=== PATIENT | female | born 1970 | race Caucasian/White ===

== ENCOUNTER 2024-09-15 22:06 | Emergency (ER) | payer OTHER, SELFPAY ==
--- NOTE | ~2024-09-15 | XR_ITS ---
CLINICAL HISTORY: pain 4 view right elbow Comparison: None Findings: Mild osteoarthritis. No displaced fracture. No dislocation. No radiopaque foreign body. IMPRESSION: 1. No acute fracture or dislocation. 2. Mild osteoarthritis. This document has been electronically signed by: Tristen Faustin MD on 09/16/2024 01:11:50
[2024-09-15 23:19] VITALS: BP 125/71; PULSE 60; RESP 18; TEMP 36.8; O2SAT 99; BMI 27.6
--- NOTE | 2024-09-16 00:50 | ED_ITS ---
HPI - Extremity Problem General Chief complaint: Extremity Problem Stated complaint: elbow hurts/ cant it move w/o pain traveling Time Seen by Provider: 09/16/24 00:46 Source: patient Mode of arrival: ambulatory Limitations: no limitations History of Present Illness ED Provider: Dr. Russ Palomino HPI Narrative: 54-year-old female who presents emergency department for evaluation of right elbow pain. The patient points to in area around her right elbow when she was asked localize the pain. She was describes the pain is feeling as if she was a pinched nerve. she states the pain started 2 weeks prior and it was initially mild but he was now become severe in his 04/18. The patient states the pain is not worse with movement of her elbow or arm but is severely painful if she t ouches the skin in the affected area. She was not noticed any breakdown of her skin, redness or lesions. She states she was took Tylenol and ibuprofen with no relief of her symptoms. She denies any injury. 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 She denied numbness or weakness of her right arm. Related Data Previous Rx's ?Medication ?Instructions ?Recorded gabapentin 300 mg capsule 300 mg PO BID 2 weeks #28 caps 09/16/24 oxycodone 5 mg tablet 5 mg PO Q6H PRN pain #1 tab 09/16/24 Allergies Allergy/AdvReac Type Severity Reaction Status Date / Time meperidine [From DEMEROL] Allergy Mild VOMITTING Unverified 09/15/24 23:21 Review of Systems Review of Systems: Yes all other systems are reviewed and are negative [facility] Social History Social History Advance Directives: No Advance Directives Information Provided: Yes Physical Exam Vital Signs: Vital Signs: Last Vital Signs Temp 98.3 F 09/16/24 01:32 Pulse 60 09/16/24 01:32 Resp 18 09/16/24 01:32 BP 125/71 09/16/24 01:32 Pulse Ox 99 09/16/24 01:32 O2 Del Method Room Air 09/16/24 01:32 BMI result Body Mass Index 27.6 Vital signs were normal exam: Right upper extremity: there were no skin changes or lesions in the affected area over her right elbow, there is no increased warmth. The patient's olecranon bursa is not inflamed or swollen. Patient has no significant pain with flexion-extension of her right elbow or supination and pronation. She does have tenderness and pain over the affected area. Her extremities neurovascularly intact. Medications Administered Discontinued Medications Generic Name Dose Route Start Last Admin Trade Name Manuelito PRN Reason Stop Dose Admin Gabapentin 300 mg 09/16/24 01:12 09/16/24 01:19 Gabapentin 300 Mg Capsule PO 09/16/24 01:13 300 mg ONCE ONE Administration Oxycodone HCl 5 mg 09/16/24 01:12 09/16/24 01:18 Oxycodone Hcl Immed Release 5 Mg Tablet PO 09/16/24 01:13 5 mg ONCE STA Administration Medical Decision Making Medical Decision Making MDM Narrative: 54-year-old female who presents emergency department for evaluation of right elbow pain. The patient points to in area around her right elbow when she was asked localize the pain. She was describes the pain is feeling as if she was a pinched nerve. she states the pain started 2 weeks prior and it was initially mild but he was now become severe in his 04/18. The patient states the pain is not worse with movement of her elbow or arm but is severely painful if she touches the skin in the affected area. She was not noticed any breakdown of her skin, redness or lesions. She states she was took Tylenol and ibuprofen with no relief of her symptoms. She denies any injury. 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 She denied numbness or weakness of her right arm. Right upper extremity exam revealed tenderness and pain with palpation over the affected area with no other significant findings, no limited range of motion of her elbow and no increased pain with either passive or active range of motion of her elbow. Differential diagnosis: Includes but is not limited to Fracture, sprain, repetitive use syndrome, herpes zoster, neuropathic pain, infection Course: The patient's x-ray revealed no acute findings to explain the patient's pain. The patient has full range of motion of her elbow and other joints of her upper extremity with no significant pain but does have tenderness and pain with palpation over the affected area of her elbow. x-rays did not reveal any significant abnormalities, she does have mild osteoarthritis but I do not think this is the cause of her pain. The patient states that her pain is excruciating with no significant findings. I do not think that she has septic arthritis, necrotizing fasciitis or cellulitis at this time. She may be experiencing neuropathic pain. I did discuss neuropathic pain in treatments with the patient and the patient's . She was given a prescription for gabapentin 300 mg b.i.d. for 2 weeks. She was advised to take Tylenol and ibuprofen for pain not relieved by these medications, she was prescribed oxycodone 5 mg every 6 hours as needed for pain. She was given her 1st dose of oxycodone and gabapentin here in the emergency department. The patient was also given a work note. I did tell the patient that I am not certain what is causing her pain and that it is very important that she follow-up with her PCP and return to the emergency department if her symptoms got worse if she developed any new symptoms that are concerning to her. Admission/Observation Consideration of admission/observation: Escalation of care including admission/observation considered ( no) Independent Interpretation I performed an independent interpretation of an: Plain X-Ray Interpretation: my independent interpretation of the patient was for review right elbow x-ray is as follows: No acute disease, no fracture noted by me Radiology Impression Discussion of test interpretation with radiology: I have reviewed the radiologist's reading. Radiologist Impression: 4 view right elbow Comparison: None Findings: Mild osteoarthritis. No displaced fracture. No dislocation. No radiopaque foreign body. IMPRESSION: 1. No acute fracture or dislocation. 2. Mild osteoarthritis. This document has been electronically signed by: Tristen Faustin MD on 09/16/2024 01:11:50 Independent Historian Clinical information obtained from an independent historian. History obtained from or confirmed by: Spouse Prescription Management I considered prescription management with: Pain Medication ( gabapentin and oxycodone) Discharge Plan Discharge Clinical Impression: Pain in right elbow, Neuropathic pain Patient Disposition: Home, Self-Care Instructions: Arm Pain (ED) Additional Instructions: I did look at your x-ray and I do not see any broken bones or significant abnormalities that explains your pain. The radiology reading is pending. You had full range of motion of the joints of your elbow which suggests that this pain is not caused by the bones or joints. Your pain seems to be more on the surface of your skin and given the severity of your pain, I suspect that this is neuropathic pain caused by inflammation of your nerves that go to the area of your elbow. Take ibuprofen 200 mg pills, 2 pills every 6 hours as needed for pain. Take Tylenol (acetaminophen) 500 mg pills, 2 pills every 6 hours as needed for pain. For pain not relieved by ibuprofen or Tylenol take oxycodone 5 mg pills, 1 pill every 6 hours as needed for pain. Do not drive or work while taking this medication since they can cause sleepiness. Oxycodone is a narcotic medication that can be addicting. If you are concerned about addiction you can ask the pharmacist for less pills or do not get this prescription filled. Take gabapentin 300 mg pills, 1 pill twice a day for 2 weeks. If you developed a rash or blisters on your elbow then you may have shingles and it would be important to follow up with your doctor to get on shingles medications as soon as you notice the rash. Follow-up with your doctor in 2 days. Please return to the emergency department if your symptoms get worse or if you develop any symptoms that are concerning to you. Prescriptions: New oxycodone 5 mg tablet 5 mg PO Q6H MDD pain PRN (Reason: pain) Qty: 1 0RF Rx Instructions: Partial Fill upon patient request. gabapentin 300 mg capsule 300 mg PO BID 14 Days Qty: 28 0RF Interventions: ED Discharge Assessment Last Done: 09/16/24 01:32 Discharge Date/Time: 09/16/24 01:32 Print Language: Citizen Of [place]
[2024-09-16] MEDS: oxyCODONE HCl Immed Release 5 MG TABLET PO (01:18)
[2024-09-16] MEDS: Gabapentin 300 MG CAPSULE PO (01:19)
[2024-09-16 01:32] VITALS: BP 125/71; PULSE 60; RESP 18; TEMP 36.8; O2SAT 99
== END 2024-09-16 01:32 | disposition home or self-care (01) ==
PROVIDERS: Emergency Provider Emergency Medicine Emergency Medical Services; PCP Internal Medicine
DX: M25.521 Pain in right elbow (principal); G56.91 Unspecified mononeuropathy of right upper limb
CPT/HCPCS: 73070; 99283

== ENCOUNTER → 2024-09-15 23:42 | Outpatient (BNV) | payer OTHER, SELFPAY | PROVIDERS: Emergency Provider Emergency Medicine Emergency Medical Services; PCP Internal Medicine; Visit Provider Radiology Neuroradiology | DX: M25.521 Pain in right elbow (principal) | CPT/HCPCS: 73070 ==

== ENCOUNTER → 2025-01-06 21:12 | Outpatient (BNV) | payer OTHER, SELFPAY | PROVIDERS: Emergency Provider Emergency Medicine; Visit Provider Student in an Organized Health Care Education/Training Program | DX: M25.571 Pain in right ankle and joints of right foot (principal); R22.41 Localized swelling, mass and lump, right lower limb | CPT/HCPCS: 73610; 73630 ==

== ENCOUNTER 2025-01-06 21:48 | Emergency (ER) | payer OTHER, SELFPAY ==
--- NOTE | ~2025-01-06 | XR_ITS ---
CLINICAL HISTORY: pain swelling 3 view right foot Comparison: None provided Findings: No fractures or dislocations. No significant loss of joint space, osteophytes, or erosions. No ankle effusion. No radiopaque foreign body. IMPRESSION: 1. No evidence of acute osseous injury. This document has been electronically signed by: Leslie Torres MD on 01/06/2025 22:45:41
--- NOTE | ~2025-01-06 | XR_ITS ---
CLINICAL HISTORY: pain swelling 3 view right ankle Comparison: None provided Findings: Bones intact. No dislocations. No significant loss of joint space, osteophytes, or erosions. No ankle effusion. No radiopaque foreign body. Partially imaged intra medullary genny within the tibia, unremarkable IMPRESSION: 1. No acute findings. This document has been electronically signed by: Leslie Torres MD on 01/06/2025 22:45:00
[2025-01-06 21:56] VITALS: BP 110/78; PULSE 83; RESP 16; TEMP 36.6; O2SAT 97; BMI 25.0
[2025-01-06 22:44] VITALS: BP 131/77; PULSE 76; RESP 16; O2SAT 97
--- NOTE | 2025-01-06 23:09 | ED_ITS ---
HPI - Extremity Injury (Lower) General Chief Complaint: Extremity Injury, Lower Stated Complaint: right foot inj Time Seen by Provider: 01/06/25 22:59 Source: patient and family Mode of arrival: ambulatory Limitations: no limitations History of Present Illness ED Provider: DR. Cm HPI Narrative: Right foot/right ankle pain for 5 days after twisted her right foot at work, patient still able to bear weight on the right ankle, ambulating with some limping. Related Data Previous Rx's ?Medication ?Instructions ?Recorded gabapentin 300 mg capsule 300 mg PO BID 2 weeks #28 ca ps 09/16/24 oxycodone 5 mg tablet 5 mg PO Q6H PRN pain #1 tab 09/16/24 Allergies Allergy/AdvReac Type Severity Reaction Status Date / Time meperidine (From DEMEROL) Allergy Mild VOMITTING Verified 01/06/25 21:59 Review of Systems Review of Systems: All other systems are reviewed and are negative Constitutional: Reports as per HPI and Reports no additional constitutional complaints Eyes: Reports as per HPI and Reports no additional eye complaints Reports system reviewed and no additional complaints, except as documented Cardiovascular: Reports as per HPI and Reports no additional cardiovascular complaints Respiratory: Reports as per HPI and Reports no additional respiratory complaints Gastrointestinal: Reports as per HPI and Reports no additional gastrointestinal complaints Genitourinary: Reports no additional female genitourinary complaints Musculoskeletal: Reports no additional musculoskeletal complaints Skin/Breast: Reports system reviewed and no additional complaints, except as docu Psychiatric: Reports no additional psychiatric complaints Endocrine: Reports no additional endocrine complaints Hematologic/Lymphatic: Reports no additional hematologic/lymphatic complaints Allergic/Immunologic: Reports no additional allergic/immunologic complaints Reports system reviewed and no additional complaints, except as documented and Reports Abnormal speech present [facility] Social History Social History Smoked in Last 30 Days: No Use of substances other than those prescribed or required for medical reasons: No Advance Directives: No Advance Directives Information Provided: Yes Do you have a plan to hurt others: No Plan Patient : No Physical Exam Vital Signs: Vital Signs: Last Vital Signs Temp 97.9 F 01/06/25 21:56 Pulse 76 01/06/25 22:44 Resp 16 01/06/25 22:44 BP 131/77 01/06/25 22:44 Pulse Ox 97 01/06/25 22:44 O2 Del Method Room Air 01/06/25 22:44 BMI result Body Mass Index 25.0 Vital signs have been reviewed and appear to be correct. Blood pressure elevated. Heart rate normal. Respiratory rate normal. Temperature normal. Oxygen saturation normal. Appearance: Alert. Oriented X3. No acute distress. Head: Normal external exam. Normocephalic. Atraumatic. No Camacho signs noted. No raccoon eyes noted Eyes: PERRLA. EOMI. Conjunctiva and sclera normal. Eyelids normal. ENT: TM's Normal. Pharynx normal. Uvula midline. Moist mucous membranes. No trismus noted. No drooling noted. No muffled voice noted. Neck: Normal inspection. Neck supple. FROM. No adenopathy. Thyroid Normal. No meningeal signs. No neck mass noted. CVS: Normal heart rate and rhythm. Heart sound normal. No murmurs noted. Pulses normal throughout. Respiratory: No respiratory distress. Painless inspiration. Breath sounds normal. No wheezes/rales/rhonchi noted. Chest nontender. No accessory muscle usage noted or decreased air movement noted. Abdomen: Soft and nontender. Bowel sounds normal in all 4 quadrants. No distention noted. No organomegaly noted. No visible injury noted. Back: No CVA tenderness. Full range of motion noted. Skin: Skin warm and dry. Normal skin color. Normal skin turgor. No rashe s/lesions/lacerations noted. Extremities: Right ankle/right foot exam: Mild diffuse tenderness around the ankle and foot, no step-off, neurovascularly intact, patent right PT/DP pulse, no ischemic changes. Neuro: Oriented X 3. Cranial nerve exam: II-XII are grossly intact No motor deficit. No sensory deficit. Reflexes normal. Course Reevaluation(s) Reevaluation #1: Right ankle sprain. Will apply is wrap, NSAIDs, ice, rest with elevation. Time: 23:13 Medical Decision Making Differential Diagnosis Differential Diagnoses: The differential diagnosis associated with the pres entation includes (Right ankle sprain, right ankle fracture, right foot sprain, right foot fracture.) Admission/Observation Consideration of admission/observation: Escalation of care including admission/observation considered Independent Interpretation I performed an independent interpretation of an: Plain X-Ray (Right foot/ankle x-ray: No acute fracture.) Radiology Impression Discussion of test interpretation with radiology: I have reviewed the ra diologist's reading. Discharge Plan Discharge Clinical Impression: Ankle sprain and strain Patient Disposition: Home, Self-Care Instructions: Ankle Sprain (ED) Additional Instructions: Take [id number] ibuprofen 200 mg every 6 hours if needed for pain, elevate, apply ice to the tender area, rest, keep Antelmo bandage wrap. Follow-up with Dr. Long if pain persist. Prescriptions: No Action oxycodone 5 mg tablet 5 mg PO Q6H MDD pain PRN (Reason: pain) Qty: 1 0RF Rx Instructions: Partial Fill upon patient request. gabapentin 300 mg capsule 300 mg PO BID 14 Days Qty: 28 0RF Referrals: Fran Long MD [Physician, Orthopedics] Stand Alone Forms: Work/School Release Print Language: Tu[place]
[2025-01-06 23:25] VITALS: BP 131/77; PULSE 76; RESP 16; TEMP 36.6; O2SAT 97
== END 2025-01-06 23:25 | disposition home or self-care (01) ==
PROVIDERS: Emergency Provider Emergency Medicine
DX: S93.401A Sprain of unspecified ligament of right ankle, initial encounter (principal); S96.911A Strain of unspecified muscle and tendon at ankle and foot level, right foot, initial encounter; X50.1XXA Overexertion from prolonged static or awkward postures, initial encounter; M79.671 Pain in right foot; Y93.9 Activity, unspecified; Y92.239 Unspecified place in hospital as the place of occurrence of the external cause; Y99.0 Civilian activity done for income or pay
CPT/HCPCS: 73610; 73630; 99283; 99284

== ENCOUNTER 2025-05-27 13:32 | Outpatient (AMB) | payer OTHER, SELFPAY ==
--- NOTE | 2025-05-27 13:35 | MHC.PC.OV ---
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
--- NOTE | 2025-05-27 13:37 | A.OFFPC_ITS ---
Vital Signs 05/27/25 13:47 Height 5 ft 6.5 in Weight 170 lb 0.8 oz BMI 27.0 BP 113/66 Blood Pressure Location Lt brachial Pulse 68 Pulse Source Pulse Oximeter Temp 97.2 F Pulse Oximetry (%) 96 Intake Visit Reasons: Annual physical, New patient Intake Note: has bone spur in right heal Patient : No Allergies meperidine (From DEMEROL) Allergy (Mild, Verified 05/27/25 14:27) VOMITTING Medication List - Last Reconciled 05/27/25 by Jacinda Franklin PA-C escitalopram oxalate 5 mg PO DAILY escitalopram oxalate 10 mg PO DAILY famotidine 40 mg PO DAILY meloxicam 15 mg PO DAILY prednisone Patient to take 60 mg for 3 days, then 50 mg for 3 days, then 40 mg for 3 days, then 30 mg for 3 days, then 20 mg for 3 days, then 10 mg for 3 days. Dispense quantity sufficient for taper. Dental Screening Dental Screen Date: 05/27/25 Did you have a dental visit in the last 12 months?: No Did you have a dental problem in the last 6 months where you did not have access to dental care?: No Was dental information given to patient?: No HPI HPI Comments History of Present Illness Details History of Present Illness The patient is a 55-year-old female presenting for a new patient appointment and annual physical exam, with a chief complaint of right heel pain. She has a diagnosis of a bone spur in her right heel and reports significant pain that limits her ability to walk, especially at her job where she is on her feet for eight hours. The pain is described as a shooting pain down her leg, and her foot is always swollen. Past treatments for her heel pain include physical therapy, which was not effective, and a cortisone injection about eight years ago, which provided tremendous relief. She is currently taking meloxicam 15 mg, which is not working. She previously tried gabapentin but stopped due to side effects of dizziness and sleepiness. Current medications include escitalopram 15 mg daily and famotidine 40 mg for colitis and acid reflux. Her past surgical history is significant for a cone biopsy for cervical dysplasia, maxillary bone lesion biopsy in 2017, colonoscopy in 2017, right tibia surgery in 2014, right carpal tunnel release in 2013, ORIF of a right spiral tib-fib fracture in 2012, ovarian cystectomy, and appendectomy. The patient's last blood work was several years ago. She quit smoking many years ago after a 20-year history. She has a history of a left breast cyst that was monitored with ultrasounds and remained stable; she is due for a mammogram. The patient reports significant life stressors, including the loss of her son to leukemia five years ago and her mother to dementia one year ago. She currently has guardianship of her grandson, which is a source of high anxiety due to o ngoing issues with the child's mother. She reports her other son has been in sober living for six months. She sees a psychologist and a weekly counselor for her anxiety. Social History - Tobacco Use: The patient is a former s moker, having quit many years ago after a 20-year smoking history. 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 - Family Status: The patient reports sig nificant family-related stress; she lost her son to leukemia 5 years ago and her mother to dementia 1 year ago. - Family Status: She has guardianship of her grandson and is dealing with legal and social issues regarding his mother. - Family Status: Her other son is in sob er living for the past six months after she intervened due to his drinking. [facility] Medical History (Updated 05/27/25 @ 14:43 by Jacinda Franklin PA-C) Tibia fracture Collagenous colitis GERD (gastroesophageal reflux disease) Healthcare maintenance Heart murmur History of mammogram Asthma Anxiety disorder Annual physical exam History of smoking Bone spur of foot Pain of right heel Surgical History (Updated 05/27/25 @ 14:43 by Jacinda Franklin PA-C) S/P right knee arthroscopy History of carpal tunnel surgery of right wrist H/O ovarian cystectomy History of appendectomy History of endoscopy (~01/29/16) History of colonoscopy (~05/26/17) Social History Patient Tobacco Use Status: Former Tobacco user Tobacco use type: Cigarette e-Cigarette/Vaping Use: Former Use Cognitive needs: No Hearing needs: No Vision needs: No Questionnaire PHQ-9 Over the last 2 weeks, how often have you been bothered by any of the following problems? 1. Little interest or pleasure in doing things: several days 2. Feeling down, depressed, or hopeless: several days 3. Trouble falling or staying asleep, or sleeping too much: several days 4. Feeling tired or having little energy: several days 5. Poor appetite or overeating: several days 6. Feeling bad about yourself - or that you are a failure or have let yourself or your family down: not at all 7. Trouble concentrating on things, such as reading the newspaper or watching television: not at all 8. Moving or speaking so slowly that other people could have noticed. Or the opposite - being so fidgety or restless that you have been moving around a lot more than usual: not at all 9. Thoughts that you would be better off or of hurting yourself in some way: not at all Total score: 5 Depression Screening Interpretation: Positive Depression Screening Follow-up: Existing condition and In treatment Depression Screening Done: Yes 98920 - PHQ-9 Billing: Yes Source: Developed by Drs. Kaleb Layne, Antonella Jacobs, Kalia Earl and colleagues, with an educational yenny from [employer]. Thrive Questionnaire Date Thrive assessed: 05/27/25 I am a: Patient What is your living situation today?: I have a steady place to live Within the past 12 months, did the food you bought not last and you didn't have the money to get more?: Never true Within the past 12 months, did you worry whether your food would run out before you got money to buy more?: Never true Do you have trouble paying for medicines?: No Do you have trouble getting transportation to medical appointments?: No Do you have trouble paying your heating and electricity bill?: No Do you have trouble taking care of your child, family member or friend?: No Do you have trouble with day-to-day activities such as bathing, preparing meals, shopping, managing finances, etc.?: No Are you currently unemployed and looking for a job?: No Are you interested in more education?: No THRIVE Score: 0 AUDIT C Alcohol Use Questionnaire (AUDIT-C) 1. How often do you have a drink containing alcohol?: 4 or more times a week 2. How many drinks containing alcohol do you have on a typical day when you are drinking?: 3 or 4 3. How often do you have six or more drinks on one occasion?: Less than monthly Total Score: 6 Score Reviewed/Action Taken: No ROSIE-7 AMB Questionnaire ROSIE-7 Date ROSIE - 7 assessed: 05/27/25 Feeling nervous, anxious, or on edge: 1 = Several days Not being able to stop or control worryin = Several days Worrying too much about different things: 1 = Several days Trouble relaxin = Several days Being so restless that it is hard to sit still: 1 = Several days Becoming easily annoyed or irritable: 1 = Several days Feeling afraid as if something awful might happen: 1 = Several days Total ROSIE-7 score (0-4 normal; 5-9 mild; 10-14 moderate; 15-21 severe): 7 Source: Developed by Drs. Kaleb Layne, Antonella Jacobs, Kalia Earl and colleagues, with an educational yenny from [employer]. ROSIE-7 Assessment Billing ROSIE-7 Assessment Tool: ROSIE-7 Assessment 41832 Review of Systems Narrative Review of Systems - Musculoskeletal: Reports severe, shooting pain in the right heel that radiates down the leg. - Musculoskeletal: Reports constant swelling in her right foot. - Musculoskeletal: Denies calf pain. - Gastrointestinal: Denies abdominal pain. - Psychiatric: Reports high anxiety related to family stressors. - All other systems reviewed and are negative. Const All systems reviewed & are unremarkable except as noted in HPI and below Physical exam (Primary Care) Vital Signs: Last Vital Signs Temp 97.2 F 05/27/25 13:47 Pulse 68 05/27/25 13:47 BP 113/66 05/27/25 13:47 Pulse Ox 96 05/27/25 13:47 Care Plan Goal for BP management: <140/90 at Goal BMI result Body Mass Index 27.0 BMI Assessment/Plan discussion: High BMI High, discussed plan: lifestyle, weight reduction, dietary, physical activity, alcohol moderation and other Tobacco/Smoking Status: Tobacco use Status e-Cigarette/Vaping Use Former Use 05/27/25 14:28 PHQ-9: PHQ-9 Score PHQ-9: Total score 5 05/27/25 14:28 Depression Screening Interpretation: Positive Depression Screening Follow-up: Existing condition and In treatment Thrive Assessment: Date of Thrive Assessment Date Thrive assessed 05/27/25 05/27/25 13:49 Narrative Physical Exam Appearance: Alert. Oriented X3. No acute distress. Head: Normal external exam. Normocephalic. Atraumatic. Eyes: Pupils are equal, round, and reactive to light. Extraocular movements intact. Conjunctiva and sclera normal. Eyelids normal. Ears: External auditory canal normal. Tympanic membranes normal. Throat: Pharynx normal. Uvula midline. Moist mucous membranes. Neck: Normal inspection. Neck supple. Full range of motion. No adenopathy. Thy roid Normal. No meningeal signs. No neck mass noted. Cardiovascular: Normal heart rate and rhythm. Heart sound normal. Slight murmur noted. Respiratory: No respiratory distress. Painless inspiration. Breath sounds normal. No wheezes/rales/rhonchi noted. Chest nontender. No accessory muscle usage noted or decreased air movement noted. Abdomen: Soft and nontender. Bowel sounds normal in all 4 quadrants. No distention noted. No organomegaly noted. No visible injury noted. Back: No costovertebral angle tenderness. Full range of motion noted. Skin: Skin warm and dry. Normal skin color. Normal skin turgor. No rashes/lesions/lacerations noted. Extremities: No lower extremity edema. Extremities exhibit normal range of motion. Right heel pain noted due to bone spur. Extremities nontender. Neuro: Oriented X 3. No motor deficit. No sensory deficit. Reflexes normal. Office Procedures Flu Questionnaire Does the patient have a severe egg allergy?: No Does the patient have severe life threatening allergies?: No Does the patient have a fever or illness today?: No Has the patient ever had Guillain-[place] Syndrome?: No Has the patient ever had any past reaction to a flu shot?: No Immunizations Fluarix [id number] (PF) 45 mcg (15 mcg x 3)/0.5 mL IM syringe Performing Provider: Jacinda Franklin PA-C [facility] Administered by: AMA Mejia on 05/27/25 13:56 Dose Route Admin Location Dispensed Lot Number Expiration Date [facility] Compliance Review Specialist 0.5 mL IM Left Deltoid 0.5 mL [id number] 01/06/26 [id number] [employer] VIS Given Date VIS Provided VIS Publication Date 05/27/25 Single Vaccine 24 Eligibility Eligibility Date Funding Source Not [facility] Eligible 05/27/25 Private Results Reviewed Results Reviewed: Results - Imaging: Prior X-ray of the right foot confirmed a bone spur. - Imaging: Prior ultrasounds for a left breast cyst showed it was stable and had not grown. Coding Level of Care Code New Pt Level 4 (96426) New Pt Prev Care 40-64y(56335) Diagnoses Annual physical exam Z00.00 Pain of right heel M79.671 Bone spur of foot M77.50 Anxiety disorder F41.9 Asthma J45.909 Heart murmur R01.1 Healthcare maintenance Z00.00 History of smoking Z87.891 Additional Codes PHQ-9 - 70475 - PHQ-9 Billing: Yes ([id number]) ROSIE-7 Assessment Billing - ROSIE-7 Assessment Tool: ROSIE-7 Assessment 21675 ([id number]) Time Spent (min) 60 Assessment & Plan Assessment & Plan (1) Annual physical exam: Code(s): Z00.00 - Encounter for general adult medical examination without abnormal findings Category: Medical (2) Pain of right heel: Code(s): M79.671 - Pain in right foot Category: Medical Plan: The patient's right heel pain, attributed to a bone spur, is not responding to meloxicam. Given the significant relief from a cortisone injection eight years ago, a referral will be placed to podiatry for consideration of a repeat injection. For short-term management, a prednisone taper was prescribed, starting at 60 mg for three days. (3) Bone spur of foot: Code(s): M77.50 - Other enthesopathy of unspecified foot and ankle Category: Medical Plan: The patient's right heel pain, attributed to a bone spur, is not responding to meloxicam. Given the significant relief from a cortisone injection eight years ago, a referral will be placed to podiatry for consideration of a repeat injection. For short-term management, a prednisone taper was prescribed, starting at 60 mg for three days. (4) Anxiety disorder: Code(s): F41.9 - Anxiety disorder, unspecified Category: Medical Plan: The patient reports significant anxiety due to family stressors and is actively engaged in therapy with a psychologist and a counselor. She has a prescription for hydroxyzine but does not take it. It was recommended that she discuss trying Ativan 0.5 mg as needed for severe anxiety with her psychologist. (5) Asthma: Code(s): J45.909 - Unspecified asthma, uncomplicated Category: Medical Plan: Condition is chronic and stable not on any current medications at this time. (6) Heart murmur: Code(s): R01.1 - Cardiac murmur, unspecified Category: Medical Plan: A slight heart murmur was auscultated during the examination. No immediate workup was ordered during this visit; will continue to monitor. (7) Healthcare maintenance: Code(s): Z00.00 - Encounter for general adult medical examination without abnormal findings Category: Medical Plan: As this is a new patient visit, comprehensive lab work was ordered, including a CBC, CMP, HbA1c, magnesium, liver enzymes, and inflammatory markers. Due to her 20-year history of smoking, a referral for a low-dose CT scan for lung cancer screening will be placed. The patient will self-schedule a mammogram follow-up for her known left breast cyst. An attempt will be made to transfer her care to the practice's [place] location for convenience, as it is closer to her home and offers integrated services. (8) History of smoking: Comment: Quit 20 years ago Code(s): Z87.891 - Personal history of nicotine dependence Category: Social Hx Plan: Patient quit over 20 years ago. She denies any acute complaints. Will refer for lung cancer screening. Plan Plan Patient was informed and verbally consented to the use of an ambient scribe for clinic note documentation during this visit. 1. Right Heel Pain The patient's right heel pain, attributed to a bone spur, is not responding to meloxicam. Given the significant relief from a cortisone injection eight years ago, a referral will be placed to podiatry for consideration of a repeat injection. For short-term management, a prednisone taper was prescribed, starting at 60 mg for three days. 2. Anxiety The patient reports significant anxiety due to family stressors and is actively engaged in therapy with a psychologist and a counselor. She has a prescription for hydroxyzine but does not take it. It was recommended that she discuss trying Ativan 0.5 mg as needed for severe anxiety with her psychologist. 3. Health Maintenance As this is a new patient visit, comprehensive lab work was ordered, including a CBC, CMP, HbA1c, magnesium, liver enzymes, and inflammatory markers. Due to her 20-year history of smoking, a referral for a low-dose CT scan for lung cancer screening will be placed. The patient will self-schedule a mammogram follow-up for her known left breast cyst. An attempt will be made to transfer her care to the practice's [place] location for convenience, as it is closer to her home and offers integrated services. 4. Heart Murmur A slight heart murmur was auscultated during the examination. No immediate workup was ordered during this visit; will continue to monitor. I discussed my findings and plan with the patient. I explained that her right heel pain is from a bone spur and that, since meloxicam is not helping, we would refer her to podiatry for a potential cortisone injection, which has helped her in the past. I prescribed a short course of oral steroids to help with the inflammation in the interim. I informed her that I detected a slight heart murmur and recommended she follow up on this with her new primary care provider. We discussed her significant life stressors and anxiety, and I recommended she speak with her psychologist about potentially using a medication like Ativan for severe anxiety episodes. I outlined the plan for health maintenance, including comprehensive blood work and a referral for a lung cancer screening CT scan due to her smoking history. She agreed to schedule her routine mammogram. We discussed transferring her care to our [place] office for her convenience, as it is much closer to her home and offers multiple services in one location, including podiatry. I explained that I would manage her initial lab results and referrals, but her care would then transition to the [place] provider. Orders: Orders Complete Blood Count Auto Diff Today Z00.00 - Encounter for general adult medical examination without abnormal findings Hemoglobin A1c Today Z00.00 - Encounter for general adult medical examination without abnormal findings Magnesium Today Z00.00 - Encounter for general adult medical examination without abnormal findings TSH reflex Free T4 Today Z00.00 - Encounter for general adult medical examination without abnormal findings UA CC w/rflx Micro + Cult Today Z00.00 - Encounter for general adult medical examination without abnormal findings Vitamin D 25-OH Total Today Z00.00 - Encounter for general adult medical examination without abnormal findings Influenza [id number] Immunization Today Z23 - Encounter for immunization C Reactive Protein Today Z00.00 - Encounter for general adult medical examination without abnormal findings Erythrocyte Sedimentation Rate Today Z.00 - Encounter for general adult medical examination without abnormal findings Vitamin B12 and Folate Today Z.00 - Encounter for general adult medical examination without abnormal findings Comprehensive Met. Panel Today Z.00 - Encounter for general adult medical examination without abnormal findings Referrals Lung Cancer Screening Referral Z87.891 - Personal history of nicotine dependence Podiatry Referral M77.50 - Other enthesopathy of unspecified foot and ankle, M79.671 - Pain in right foot Medications: New prednisone Patient to take 60 mg for 3 days, then 50 mg for 3 days, then 40 mg for 3 days, then 30 mg for 3 days, then 20 mg for 3 days, then 10 mg for 3 days. Dispense quantity sufficient for taper. 63 tabs 0RF Discontinued oxycodone Partial Fill upon patient request. Discontinued Reason: Patient no longer taking 5 mg PO Q6H PRN 1 tab 0RF pain MDD pain gabapentin Discontinued Reason: Patient no longer taking 300 mg PO BID 2 weeks 28 caps 0RF Patient Instructions: Patient Instructions - A prescription for a prednisone taper has been sent to your pharmacy. - You can continue to take meloxicam as needed for pain. - We are placing a referral to a manager field sales for your right heel pain; you may call their office to schedule an appointment. - Please go to the lab to have your blood work done. - You will be contacted within a month to schedule a lung cancer screening (a low-dose CT scan of your chest). - Please call to schedule your routine mammogram at [facility]. - We will attempt to transfer your care to our [place] office, which is closer to your home. - Our staff will contact you to set up a new patient appointment at the [place] office. - Please discuss the possibility of taking Ativan 0.5 mg as needed for severe anxiety with your psychologist.
[2025-05-27 13:47] VITALS: BP 113/66; PULSE 68; TEMP 36.2; O2SAT 96; BMI 27.0
--- OUTSIDE RECORDS SUMMARY | 2025-05-28 06:55 | XMS_ITS | Clinical Summary ---
Author Organization [facility] Address [address] [place] [address] Phone Care Team Providers Care Milieu Therapist Name Role Phone Dale Gillette MD Primary Care Provider [phone] Allergies Active Allergy Reactions Criticality Noted Date Comments Meperidine 10/08/2024 Medications methocarbamoL (ROBAXIN) 750 mg tablet Take 1 tablet (750 mg total) by mouth 4 (four) times a day for 10 days. 40 each 10/08/2024 Active Surgical History Surgery Date Site/Laterality Comments TUBAL LIGATION PROCEDURE: HISTORICAL TUBAL LIGATION OOPHORECTOMY Left PROCEDURE: TN OOPHORECTOMY PARTIAL/TOTAL UNI/BI COLONOSCOPY 10/2023 PROCEDURE: OUTSIDE COLONOSCOPY; COMMENT: normal Medical History Medical History Date Comments Colitis DX:Colitis Depression DX:Depression Family History Medical History Relation Name Comments Colon cancer Maternal Grandfather Breast cancer Neg Hx Relation Name Status Comments Father Maternal Grandfather Mother Alive Son 1 Alive Son 2 Alive Son 3 Alive Social History Tobacco Use Types Packs/Day Years Used Date Smoking Tobacco: Former Cigarettes Smokeless Tobacco: Never Alcohol Use Standard Drinks/Week Comments Yes 0 (1 standard drink = 0.6 oz pur e alcohol) Comments Unknown Sex and Gender Information Value Date Recorded Sex Assigned at Female 10/08/2024 8:40 PM EDT Legal Sex Female 12:07 PM EST Gender Identity Female 10/08/2024 8:40 PM EDT Sexual Orientation Straight 10/08/2024 8: 40 PM EDT Obstetrics History Last Filed Vital Signs Vital Sign Reading Time Taken Comments Blood Pressure 132/85 10/08/2024 6:35 PM EDT Pulse 76 10/08/2024 6:35 PM EDT Temperature 36.6 C (97.9 F) 10/08/2024 6:35 PM EDT Respiratory Rate 18 10/08/2024 6:35 PM EDT Oxygen Saturation 98% 10/08/2024 6:35 PM EDT Inhaled Oxygen Concentration - - Weight 72.6 kg (160 lb) 10/08/2024 6:35 PM EDT Height 170.2 cm (5' 7 ) 10/08/2024 6:35 PM EDT Body Mass Index 25.06 10/08/2024 6:35 PM EDT Plan of Treatment Health Maintenance Due Date Last Done Comments Colorectal Cancer Screening: Colonoscopy 1969 Hepatitis B Vaccines (1 of 3 - 19+ 3-dose series) 02/29/1988 Pneumococcal Vaccine: 50+ Years (1 of 2 - PCV) 02/29/1988 RSV Immunization Adult Patients (1 - Risk 50-74 years 1-dose series) 2019 Breast Cancer Screening 03/29/2020 03/29/2018, 12/02 HIV Screening 02/06/2024 Hepatitis C Screening 02/06/2024 Social Influencers of Health Screening 02/06/2024 Depression Screening 07/10/2024 COVID-19 Vaccine ( season) 2025 03/17/2021, 02/24/2021 Influenza Vaccine (#1) 2025 , 04/12/2023, 04/21/2021, Additional history exists Cervical Cancer Screening: Pap Smear 11/15/2026 11/16/2023 DTaP,Tdap,and Td Vaccines (5 - Td or Tdap) 03/16/2033 03/16/2023, 03/27/2013, 03/06/2007, Additional history exists MMR Vaccines Aged Out 12/14/2006 No longer eligi ble based on patient's age to complete this topic Zoster Vaccines Completed 04/12/2023, 02/03/2023 HIB Vaccines Aged Out No longer eligi ble based on patient's age to complete this topic HPV Vaccines Aged Out No longer eligi ble based on patient's age to complete this topic Hepatitis A Vaccines Aged Out No long er eligible based on patient's age to complete this topic IPV Vaccines Aged Out No longer eligi ble based on patient's age to complete this topic Meningococcal ACWY Vaccine Aged Out N o longer eligible based on patient's age to complete this topic Meningococcal B Vaccine Aged Out No l onger eligible based on patient's age to complete this topic RSV Immunization Patients Under 20 months Aged Out No longer eligible based on patient's age to complete this topic Varicella Vaccines Aged Out No longer eligible based on patient's age to complete this topic Procedures Procedure Name Priority Date/Time Associated Diagnosis Comments PAP SMEAR Routine 11/16/2023 SCR MAMMO BI INCL CAD Routine 03/29/2018 10:32 AM EDT Encounter for screening mammogram for malignant neoplasm of breast from Last 3 Months or Most Recently Relevant to Health Maintenance Results * Pap smear (11/16/2023) 11/16/2023 Narrative HISTORICAL TESTING LAB RESULTING AGENCY - 11/21/2023 5:01 PM EDT [id number] THINPREP PAP, IMAGED: NEGATIVE FOR SQUAMOUS INTRAEPITHELIAL LESION AND MALIGNANCY. ATROPHY. DALE TEJADA , ALONSO(ASCP) (CASE ELECTRONICALLY SIGNED 11 21 2023) RESULT OF APTIMA HIGH RISK HPV ASSAY: HIGH RISK HPV: NEGATIVE (SEROTYPES 16,18,31,33,35,39,45,51,52,56,58,59,66,68) COMPLETED ON 2023-11-20 ADEQUACY: SATISFACTORY . SOURCE: THINPREP PAP HPV ANY DX: REFLEX 16 AND 18, CERVICAL, IMAGED CLINICAL INFORMATION: HPV ANY DIAGNOSIS. MENOPAUSE, PAP HX NEGATIVE, [Z01.419] us Laila South CN LAB CYTOLOGY ORDERABLES Final Result HISTORICAL TESTING LAB RESULTING AGENCY * SCR MAMMO BI INCL CAD (03/29/2018 10:32 AM EDT) Anatomical Region Laterality Modality Radiographic Tiffani ging 12/02/2016 1:24 PM EDT Narrative 03/29/2018 3:28 PM EDT This is a summary report. The complete report is available in the patient's medical record. If you cannot access the medical record, please contact the sending organization for a detailed fax or copy. Full field digital screening mammography, reviewed with CAD and compared to previous. The breasts are composed of fatty and fibroglandular tissue. No suspicious mass, architectural distortion or suspicious calcifications are identified. IMPRESSION: : No mammographic evidence of malignancy. BIRADS 1-Negative; N. 5 year breast cancer risk assessment 0.8 % Lifetime breast cancer risk assessment 8.2 % Breast cancer risk category Low (<15%) Procedure Note Cathy Olson MD - 06/28/2022 This is a summary report. The complete report is available in thepatient's medical record. If you cannot access the medical record, pleasecontact the sending organization for a detailed fax or copy. Full field digital screening mammography, reviewed with CAD and comparedto previous. The breasts are composed of fatty and fibroglandular tissue.No suspicious mass, architectural distortion or suspicious calcificationsare identified. IMPRESSION: : No mammographic evidence of malignancy. BIRADS 1-Negative; N. 5 year breast cancer risk assessment 0.8 % Lifetime breast cancer risk assessment 8.2 % Breast cancer risk category Low (<15%) Betty Eva [facility] IMG XR PROCEDURES F inal Result from Last 3 Months or Most Recently Relevant to Health Maintenance Insurance [employer] Care Teams Milieu Therapist Relationship Specialty Start Date End Date Dale Gillette MD [address] [place] [id number] PCP - General 02/21/05
== END 2025-05-27 14:45 | disposition home or self-care (01) ==
LOC: HO.HMCSH 13:32
PROVIDERS: PCP Physician Assistant Medical; Visit Provider Physician Assistant Medical
DX: Z00.00 Encounter for general adult medical examination without abnormal findings (principal); R01.1 Cardiac murmur, unspecified; M79.671 Pain in right foot; M77.50 Other enthesopathy of unspecified foot and ankle; F41.9 Anxiety disorder, unspecified; J45.909 Unspecified asthma, uncomplicated; Z87.891 Personal history of nicotine dependence; Z23 Encounter for immunization

== ENCOUNTER 2025-05-27 13:32 | Outpatient (REF) | payer OTHER, SELFPAY ==
[2025-05-27 18:03] LABS: MANUAL DIFF FLAG NO
[2025-05-27 18:15] LABS: Appearance Urine Clear; Glucose Urine UA Negative (Negative); PH 5.5 (5.0-9.0); Specific Gravity - Urine 1.010 (1.005-1.025); UMIC TRIGGER UACC YES
[2025-05-27 18:22] LABS: UACC Culture Trigger YES
[2025-05-27 18:24] LABS: Hematocrit 41.2 % (37.0-47.0); Hemoglobin 13.5 g/dl (12.0-16.0); Imm Gran Abs Auto 0.01 X10*3/uL (0.00-0.03); Imm Gran Pct Auto 0.2 % (0.0-0.4); Lymphocytes Absolute Auto 2.5 X10*3/uL (1.2-4.9); Mean Corpuscular HGB Conc 32.8 g/dl (31.0-35.0); Mean Corpuscular Hemoglobin 31.1 pg (27.0-33.0); Mean Corpuscular Volume 94.9 fL (80.0-98.0); NRBC Abs Auto 0.000 X10*3/uL (0.0-0.012); NRBC Pct Auto 0.0 /100WBC (0.0-0.2); Platelet Count 275 X10*3/uL (160-400); Red Blood Count 4.34 X10*6/uL (4.20-5.50); White Blood Count 6.3 X10*3/uL (4.8-10.8)
[2025-05-27 18:48] LABS: Alanine Aminotransferase 28 U/L (0-31); Albumin Level 4.7 g/dL (3.5-5.0); Alkaline Phosphatase 66 U/L (39-117); Anion Gap 13 (12-20); Aspartate Amino Transferase 31 U/L (5-31); Blood Urea Nitrogen 14 mg/dL (9-16); Calcium 9.3 mg/dL (8.4-10.2); Carbon Dioxide 26 mmol/L (22-29); Chloride 106 mmol/L (96-108); Estimated Glomerular Filt Rate > 60; Magnesium 2.1 mg/dL (1.6-2.6); Potassium 3.8 mmol/L (3.3-5.1); Sodium 141 mmol/L (135-145); Total Protein 6.9 g/dL (6.5-8.0)
[2025-05-27 19:09] LABS: Erythrocyte Sedimentation Rate 4 MM/HR (0-20)
[2025-05-27 19:23] LABS: Folate 10.4 ng/mL (> or = 4.0); Vitamin B12 408 pg/mL (200-900)
== END 2025-05-27 13:33 | disposition home or self-care (01) ==
LOC: HO.HKASLDS 13:32
PROVIDERS: PCP Physician Assistant Medical; Visit Provider Physician Assistant Medical
DX: Z00.00 Encounter for general adult medical examination without abnormal findings (principal); Z23 Encounter for immunization; M79.671 Pain in right foot; M77.50 Other enthesopathy of unspecified foot and ankle; F41.9 Anxiety disorder, unspecified; J45.909 Unspecified asthma, uncomplicated; R01.1 Cardiac murmur, unspecified; Z79.1 Long term (current) use of non-steroidal anti-inflammatories (NSAID); Z79.52 Long term (current) use of systemic steroids; Z79.899 Other long term (current) drug therapy; Z87.891 Personal history of nicotine dependence
CPT/HCPCS: 36415; 80053; 81001; 82306; 82607; 82746; 83036; 83735; 84443; 85025; 85652; 86140; 87086; 87088; 87186; 90471; 90656; 96127; 99202; 99386

== ENCOUNTER 2025-06-26 08:08 | Outpatient (AMB) | payer OTHER, SELFPAY ==
--- OUTSIDE RECORDS SUMMARY | 2025-06-26 08:11 | XMS_ITS | Clinical Summary ---
Author Organization [facility] Address [address] [place] [address] Phone Care Team Providers Care Pipe Cleaning Machine Operator Name Role Phone Dale Gillette MD Primary Care Provider [phone] Allergies Active Allergy Reactions Criticality Noted Date Comments Meperidine 10/08/2024 Medications methocarbamoL (ROBAXIN) 750 mg tablet Take 1 tablet (750 mg total) by mouth 4 (four) times a day for 10 days. 40 each 10/08/2024 Active Surgical History Surgery Date Site/Laterality Comments TUBAL LIGATION PROCEDURE: HISTORICAL TUBAL LIGATION OOPHORECTOMY Left PROCEDURE: [place] OOPHORECTOMY PARTIAL/TOTAL UNI/BI COLONOSCOPY 10/2023 PROCEDURE: OUTSIDE [...] Orientation Straight 10/08/2024 8: 40 PM EDT Last Filed Vital Signs Vital Sign Reading [...] RESULTING AGENCY - 11/21/2023 5:01 PM EDT [id number] THINPREP PAP, IMAGED: NEGATIVE FOR SQUAMOUS INTRAEPITHELIAL [...] MENOPAUSE, PAP HX NEGATIVE, [Z01.419] us Laila HERNANDEZ LAB CYTOLOGY ORDERABLES Final Result HISTORICAL TESTING [...] cancer risk category Low (<15%) Betty Eva CN IMG XR PROCEDURES F inal Result from Last 3 Months or Most Recently Relevant to Health Maintenance Insurance [facility] [employer] Care Teams Pipe Cleaning Machine Operator Relationship Specialty Start Date End Date Dale Gillette MD [address] [place] [id number] PCP - General 02/21/05
[2025-06-26 08:23] VITALS: BMI 26.3
--- NOTE | 2025-06-26 08:23 | A.OFFVIS_ITS ---
Vital Signs 06/26/25 08:23 Height 5 ft 7 in Weight 168 lb BMI 26.3 Intake Visit Reasons: right foot pain Intake Note: Ana is a 55 year old female who presents to the office today as a new patient visit referred by her PCP Jacinda Franklin for right foot pain. Pt states the pain has been going on for about 6 months and the pain is located in her right heel. She has tried Tylenol, Stretching exercises, icing the foot and has found no relief for her pain. She mentions her PCP had prescribed her prednisone which ahs helped her in the past. Patient had an injection in the foot over 10 years ago and found this also had provided relief for her symptoms. Foot and ankle X ray completed on 01/06/25. Allergies meperidine (From DEMEROL) Allergy (Mild, Verified 06/26/25 08:25) VOMITTING HPI Comments Details: Chief Complaint The patient is a 55-year-old female presenting with right heel pain for the past six months. History of Present Illness The patient is a 55 year old female presenting with right heel pain. She reports a six-month history of right heel pain that started insidiously and has progressively worsened. The pain is severe enough to alter her gait, causing her to walk on the side of her foot. She has a history of plantar fasciitis, for which she received an injection years ago and performed physical therapy exercises. Social History: - Employment: The patient is on her feet at work. [facility] Medical History (Updated 06/26/25 @ 08:36 by Hugo Yeboah DPM) UTI (urinary tract infection) Tibia fracture Collagenous colitis GERD (gastroesophageal reflux disease) Healthcare maintenance Heart murmur History of mammogram Asthma Anxiety disorder Annual physical exam History of smoking Bone spur of foot Pain of right heel Surgical History (Updated 05/27/25 @ 14:43 by Jacinda Franklin PA-C) S/P right knee arthroscopy History of carpal tunnel surgery of right wrist H/O ovarian cystectomy History of appendectomy History of endoscopy (~01/29/16) History of colonoscopy (~05/26/17) Social History Patient Tobacco Use Status: Former Tobacco user Tobacco use type: Cigarette e-Cigarette/Vaping Use: Former Use Cognitive needs: No Hearing needs: No Vision needs: No Physical Exam Exam Exam: Diagnostic results - Imaging: A small bone spur is noted on the bottom of the heel. Pathology results Physical Exam - Right Foot: Tenderness to palpation over the plantar heel, worse medially. - Musculoskeletal: Pain is elicited with ankle flexion. - Gait: Observed antalgic gait, with weight-bearing on the lateral aspect of the foot. Vital Signs: BMI result Body Mass Index 26.3 Office Procedures AMB Flexor Tendon/Plantar POD Tendon Injection Details of AMB Procedure: Procedure: Steroid injection Location: right plantar medial calcaneal tubercle Medication: 1.5cc 0.5% bupivicaine, 1cc dexamethasone, 0.5cc kenalog? Description: The right heel was prepped using alcohol. A steroid injection was administered using sterile technique. The site was dressed using a band-aid. Post-procedure Instructions: The patient was instructed to apply ice to the injection site. The patient was advised to call the office if there are signs or symptoms of worsening pain, infection, or steroid flare. Tendon Injection POD1: - Plantar Fascia Injection All charges added?: Procedure code (CPT) selection complete Office Meds triamcinolone acetonide 40 mg/mL suspension for injection Performing Provider: Hugo Yeboah DPM Performing Location: [facility] Administered by: Hugo Yeboah DPM on 06/26/25 08:54 Dose Route Admin Location Dispensed Lot Number Expiration Date [facility] Distribution Spec 20 mg Tendon Sheath Inj. 1 mL [address]-0 [employer] Total Dispensed Waste 1 mL 50 % dexamethasone sodium phosphate 4 mg/mL injection solution Performing Provider: Hugo Yeboah DPM Performing Location: [facility] Administered by: Hugo Yeboah DPM on 06/26/25 08:54 Dose Route Admin Location Dispensed Lot Number Expiration Date [facility] Distribution Spec 4 mg Tendon Sheath Inj. 1 mL 69739-682-68 [employer] Total Dispensed Waste 1 mL 0 % bupivacaine (PF) 0.5 % (5 mg/mL) injection solution Performing Provider: Hugo Yeboah DPM Performing Location: [facility] Administered by: Hugo Yeboah DPM on 06/26/25 08:54 Dose Route Admin Location Dispensed Lot Number Expiration Date [employer] Distribution Spec 2 mL intra-articular 10 mL [id number] [employer] Total Dispensed Waste 10 mL 80 % Results Reviewed Results Reviewed: X-ray Read: 01/06/2025 X-ray right ankle 3 views (AP, MO, Lateral) reviewed which shows mild plantar calcaneal spur. No fractures, dislocations, or gross abnormalities. IM nail intact in distal tibia. No evidence of foreign body or calcifications. I personally reviewed the imaging and my findings are listed above. X-ray Read: 12/2024 X-ray [right/left] foot 3 views (AP, MO, Lateral) reviewed which shows mild calcaneal spur. Bone density is within normal limits. Normal anatomy. No evidence of swelling, foreign body, or calcifications. I personally reviewed the imaging and my findings are listed above. Assessment & Plan Assessment & Plan (1) Plantar fasciitis of right foot: Code(s): M72.2 - Plantar fascial fibromatosis Category: Medical Plan: * Discussed etiology of the patient's foot pain. Differential diagnosis includes plantar fasciitis, neuritis, tendinitis. * Patient educated on the nature and etiology of plantar fasciitis, which involves inflammation and microtearing of the plantar fascia due to repetitive stress and overuse. * The patient was counseled on conservative management of plantar fasciitis, including daily stretching exercises targeting the plantar fascia and Achilles tendon, use of supportive and properly fitting footwear, and consideration of custom or prefabricated orthotics to improve foot biomechanics. * Instructed the patient on home stretching and range of motion exercises including calf-stretches, frozen water bottle therapy, band-therapy. * Administered steroid injection to the right heel * Rx Diclofenac 75mg BID * Follow up in 3 weeks (2) Bone spur of foot: Code(s): M77.50 - Other enthesopathy of unspecified foot and ankle Category: Medical Plan: * Reviewed right foot x-rays. Discussed that her bone spur is mild and we would not recommend surgical intervention at this point. Plan Counseling The patient was counseled regarding the diagnosis of plantar fasciitis and the treatment plan. It was explained that the goal is to reduce inflammation of the plantar fascia through a combination of an injection, oral anti-inflammatory medication, and continued home exercises. She was informed that the co-existing bone spur is not the source of her pain and does not require treatment at this time. The high success rate of non-surgical treatment was emphasized, and she was advised that up to three injections might be needed for this chronic condition. Orders: Orders AMB Flexor Tendon / Plantar Fascia Injection Today M72.2 - Plantar fascial fibromatosis Medications: New diclofenac sodium Take one tablet with food twice a day 75 mg PO BID PRN 30 tabs 1RF pain (scale score 7-10) M72.2 - Plantar fascial fibromatosis, M77.50 - Other enthesopathy of unspecified foot and ankle Coding Level of Care Code New Pt Level 4 (72277) Diagnoses Plantar fasciitis of right foot M72.2 Bone spur of foot M77.50 CPT Codes Tendon Injection - Tendon Injection POD1: - Plantar Fascia Injection ([id number]) Time Spent (min) 35
== END 2025-06-26 08:40 | disposition home or self-care (01) ==
LOC: HO.HPODS 08:08
PROVIDERS: PCP Physician Assistant Medical; Visit Provider Student in an Organized Health Care Education/Training Program
DX: M72.2 Plantar fascial fibromatosis (principal); M77.50 Other enthesopathy of unspecified foot and ankle
CPT/HCPCS: 20550; 99204

== ENCOUNTER → 2025-06-26 08:08 | Outpatient (BNVA) | payer SELFPAY | PROVIDERS: PCP Physician Assistant Medical; Visit Provider Student in an Organized Health Care Education/Training Program | DX: M72.2 Plantar fascial fibromatosis (principal); M77.50 Other enthesopathy of unspecified foot and ankle | CPT/HCPCS: 20550; 99202; J0665; J1100; J3301 ==